=== PATIENT | male | born 1970 | race Caucasian/White ===

== ENCOUNTER 2023-08-10 04:33 | Day surgery (SDC) | payer OTHER ==
[2023-08-08 16:11] VITALS: BMI 32.1
[2023-08-10 08:42] VITALS: TEMP 97.3
[2023-08-10 09:02] VITALS: RESP 16
[2023-08-10 09:59] VITALS: BP 101/49; PULSE 50
== END 2023-08-10 09:50 | disposition home or self-care (01) ==
LOC: JASU-ENDO 04:33
PROVIDERS: ATTEND Internal Medicine Gastroenterology
PROC: 0DBH8ZX Excision of Cecum, Via Natural or Artificial Opening Endoscopic, Diagnostic (ICD-10-PCS; principal; 2023-08-10 08:00)
DX: Z12.11 Encounter for screening for malignant neoplasm of colon (principal); D12.0 Benign neoplasm of cecum; K59.00 Constipation, unspecified; K64.8 Other hemorrhoids; K59.89 Other specified functional intestinal disorders; Z83.71 Family history of colonic polyps
CPT/HCPCS: 88305-TC